=== PATIENT | female | born 1995 | race Caucasian/White ===

== ENCOUNTER 2017-02-16 15:30 | Emergency (ER) | payer SELFPAY ==
[2017-02-16 16:09] VITALS: BP 117/74
--- NOTE | 2017-02-16 17:15 | RAD ---
INDICATION: Cough and fever. COMPARISON: There are no prior studies available for comparison. TECHNIQUE: Dual-energy PA and lateral views of the chest were obtained. FINDINGS: The heart is within normal limits in size. Mediastinal and hilar contours appear within normal limits. The lungs are clear. No pleural effusion is present. IMPRESSION: NO EVIDENCE FOR ACTIVE CARDIOPULMONARY DISEASE.
--- NOTE | 2017-02-16 17:56 | UC ---
General HPI - HPI Summary HPI Summary: THREE DAYS OF FEVER AND CHILLS, RESOLVING AND RETURNING. MILD COUGH. MILD SORE THROAT TWO DAYS AGO. NO ABDOMINAL PAIN. NO TICK BITE. NO RASHES. NO NECK STIFFNESS. NO JOINT PAIN. NO DYSURIA. NO RECENT TRAVEL. NO NAUSEA NO VOMITING NO DIARRHEA. NO CONSTIPATION. - History of Current Complaint Chief Complaint: UCGeneralIllness Stated Complaint: FEVER Time Seen by Provider: 02/16/17 15:43 Hx Obtained From: Patient, Family/Denture Model Maker Hx Last Menstrual Period: one week ago Onset/Duration: Gradual Onset, Lasting Days, Still Present Onset Severity: Mild Current Severity: Mild Pain Intensity: 0 Associated Signs & Symptoms: Positive: Cough - MILD, Fever. Negative: Chest Pain, Dizziness, Diarrhea, Dysuria, Edema, Headache, Syncope, SOB, Trauma, Vomiting, Wheezing, Weakness - Allergy/Home Medications Allergies/Adverse Reactions: Allergies Allergy/AdvReac Type Severity Reaction Status Date / Time Sulfa Drugs Allergy Severe Airway Verified 02/16/17 15:36 Obstruction IVORY SOAP Allergy Rash Uncoded 02/16/17 15:36 Home Medications: Home Medications NK [No Home Medications Reported] 02/16/17 [History Confirmed 02/16/17] PMH/Surg Hx/FS Hx/Imm Hx Previously Healthy: Yes Other History Of: Negative For: Anticoagulant Therapy - Surgical History Surgical History: None - Family History Known Family History: Positive: None Negative: Blood Disorder - Social History Occupation: Employed Full-time Lives: With Family Alcohol Use: Occasionally Substance Use Type: None Smoking Status (MU): Light Every Day Tobacco Smoker Have You Smoked in the Last Year: No Cessation Counseling: Patient Advised to Stop - Immunization History Most Recent Influenza Vaccination: none Most Recent Tetanus Shot: 12/22/14 Most Recent Pneumonia Vaccination: none Review of Systems Constitutional: Fever, Chills Skin: Negative Eyes: Negative ENT: Negative Respiratory: Negative Cardiovascular: Negative Gastrointestinal: Negative Genitourinary: Negative Motor: Negative Neurovascular: Negative Musculoskeletal: Negative Neurological: Negative Psychological: Negative All Other Systems Reviewed And Are Negative: Yes Physical Exam Triage Information Reviewed: Yes Appearance: Well-Appearing, No Pain Distress, Ill-Appearing - MILDLY, Thin Vital Signs: Initial Vital Signs Temp 98.3 F 02/16/17 15:32 Pulse 92 02/16/17 15:32 Resp 12 02/16/17 15:32 BP 117/74 02/16/17 15:32 Pulse Ox 99 02/16/17 15:32 Vital Signs Reviewed: Yes Eye Exam: Normal ENT Exam: Normal ENT: Positive: Normal ENT inspection, Hearing grossly normal, Pharynx normal, TMs normal Dental Exam: Normal Neck exam: Normal Neck: Positive: Supple, Nontender Respiratory Exam: Normal Respiratory: Positive: Chest non-tender, Lungs clear, Normal breath sounds, No respiratory distress, No accessory muscle use Cardiovascular Exam: Normal Cardiovascular: Positive: RRR, No Murmur, Pulses Normal Abdominal Exam: Normal Abdomen Description: Positive: Nontender, No Organomegaly, Soft Musculoskeletal Exam: Normal Neurological Exam: Normal Psychological Exam: Normal Skin Exam: Normal Course/Dx - Differential Dx - Multi-Symptom Differential Diagnoses: Metabolic Abnormality, Sepsis, Urinary Tract Infection Provider Diagnoses: VIRAL SYNDROME Discharge - Discharge Plan Condition: Stable Disposition: HOME Patient Education Materials: Viral Syndrome (ED) Forms: *Work Release Referrals: [facility] PHYSICIAN REFERRAL [Outside] No Primary Care Phys,NOPCP [Primary Care Provider] - Additional Instructions: PRIMARY CARE: There are four major types of clinical preventive care: immunizations, screening , behavioral counseling (sometimes referred to as lifestyle changes), and chemoprevention. All four apply throughout the life span. It is important to establish and to have access to a Primary Care Physician, not only for follow- up regrding acute and chronic problems, but also for preventative care.
--- NOTE | 2017-02-18 07:55 | UC ---
Progress - Progress Note Progress Note: URINE CX WITH STAPH HOMINIS. KEFLEX SENT TO [facility] IN [place]. - JOSÉ MIGUEL MONTAÑO MD
--- NOTE | 2017-02-19 08:53 | UC ---
Complaint Female HPI - HPI Summary HPI Summary: THREE DAYS OF FEVER AND CHILLS, RESOLVING AND RETURNING. MILD COUGH. MILD SORE THROAT TWO DAYS AGO. NO ABDOMINAL PAIN. NO TICK BITE. NO RASHES. NO NECK STIFFNESS. NO JOINT PAIN. NO DYSURIA. NO RECENT TRAVEL. NO NAUSEA NO VOMITING NO DIARRHEA. NO CONSTIPATION. PLEASE CALL PATIENT. CHANGE ANTIBIOTIC TO MACROBID SECONDARY TO CULTURE RESULTS. IF WORSE GO TO ER. - History Of Current Complaint Chief Complaint: UCGeneralIllness Stated Complaint: FEVER Time Seen by Provider: 02/16/17 15:43 Hx Obtained From: Patient, Family/Counter Intelligence Agent Hx Last Menstrual Period: one week ago Onset/Duration: Gradual Onset, Lasting Days, Still Present Pain Intensity: 0 Pain Scale Used: 0-10 Numeric - Allergies/Home Medications Allergies/Adverse Reactions: Allergies Allergy/AdvReac Type Severity Reaction Status Date / Time Sulfa Drugs Allergy Severe Airway Verified 02/16/17 15:36 Obstruction IVORY SOAP Allergy Rash Uncoded 02/16/17 15:36 PMH/Surg Hx/FS Hx/Imm Hx Previously Healthy: Yes Other History Of: Negative For: Anticoagulant Therapy - Surgical History Surgical History: None - Family History Known Family History: Positive: None Negative: Blood Disorder - Social History Occupation: Employed Full-time Lives: With Family Alcohol Use: Occasionally Substance Use Type: None Smoking Status (MU): Light Every Day Tobacco Smoker Have You Smoked in the Last Year: No Cessation Counseling: Patient Advised to Stop - Immunization History Most Recent Influenza Vaccination: none Most Recent Tetanus Shot: 12/22/14 Most Recent Pneumonia Vaccination: none Review of Systems Constitutional: Fever, Chills Skin: Negative Eyes: Negative ENT: Negative Respiratory: Negative Cardiovascular: Negative Gastrointestinal: Negative Genitourinary: Negative Motor: Negative Neurovascular: Negative Musculoskeletal: Negative Neurological: Negative Psychological: Negative All Other Systems Reviewed And Are Negative: Yes Physical Exam Triage Information Reviewed: Yes Appearance: Well-Appearing, No Pain Distress, Ill-Appearing - MILDLY, Thin Vital Signs: Initial Vital Signs Temp 36.8 C 02/16/17 15:32 Pulse 92 02/16/17 15:32 Resp 12 02/16/17 15:32 BP 117/74 02/16/17 15:32 Pulse Ox 99 02/16/17 15:32 Vital Signs Reviewed: Yes Eye Exam: Normal ENT Exam: Normal ENT: Positive: Normal ENT inspection, Hearing grossly normal, Pharynx normal, TMs normal Dental Exam: Normal Neck exam: Normal Neck: Positive: Supple, Nontender Respiratory Exam: Normal Respiratory: Positive: Chest non-tender, Lungs clear, Normal breath sounds, No respiratory distress, No accessory muscle use Cardiovascular Exam: Normal Cardiovascular: Positive: RRR, No Murmur, Pulses Normal Abdominal Exam: Normal Abdomen Description: Positive: Nontender, No Organomegaly, Soft Musculoskeletal Exam: Normal Neurological Exam: Normal Psychological Exam: Normal Skin Exam: Normal Complaint Female Dx - Differential Dx/Diagnosis Provider Diagnoses: UTI Discharge - Discharge Plan Condition: Stable Disposition: HOME Prescriptions: Cephalexin CAP* [Keflex 500 CAP*] 1,000 mg PO BID #20 cap Nitrofurantoin Monohyd Macro [Macrobid] 100 mg PO BID #14 cap Patient Education Materials: Viral Syndrome (ED) Forms: *Work Release Referrals: [facility] [place] [facility] REFERRAL [Outside] No Primary Care Phys,NOPCP [Primary Care Provider] - Additional Instructions: PRIMARY CARE: There are four major types of clinical preventive care: immunizations, screening , behavioral counseling (sometimes referred to as lifestyle changes), and chemoprevention. All four apply throughout the life span. It is important to establish and to have access to a Primary Care Physician, not only for follow- up regrding acute and chronic problems, but also for preventative care.
== END 2017-02-16 17:28 | disposition home or self-care (01) ==
LOC: UCEAST 15:30
DX: B34.9 Viral infection, unspecified (principal); N39.0 Urinary tract infection, site not specified; B95.7 Other staphylococcus as the cause of diseases classified elsewhere; R05 Cough; R50.9 Fever, unspecified; Z88.2 Allergy status to sulfonamides; F17.210 Nicotine dependence, cigarettes, uncomplicated; Z32.02 Encounter for pregnancy test, result negative
CPT/HCPCS: 71020; 81003; 84702; 87077; 87086; 87186; 87651; 99211; G0463

== ENCOUNTER 2017-06-29 11:52 | Emergency (ER) | payer SELFPAY ==
--- NOTE | 2017-06-29 12:55 | UC ---
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 - History of Current Complaint Chief Complaint: UCBackPain Stated Complaint: LOWER BACK PAIN Hx Obtained From: Patient Hx Last Menstrual Period: 06/22/17 Onset/Duration: Gradual Onset, Lasting Weeks - 2 Timing: Constant Severity Initially: Mild Severity Currently: Moderate Pain Intensity: 7 Pain Scale Used: 0-10 Numeric Back Pain: Is Diffuse, Radiates To - RIGHT LEG Character: Dull, Aching, Throbbing Aggravating Factor(s): Lifting, Bending Alleviating Factor(s): Nothing Associated Signs And Symptoms: Negative: Swelling, Redness, Bruising, Fever, Weakness, Numbness, Tingling, Abdominal Pain, Flank Pain, Bladder Incontinence, Bowel Incontinence, Weight Loss, Pain with Weight Bearing - Allergies/Home Medications Allergies/Adverse Reactions: Allergies Allergy/AdvReac Type Severity Reaction Status Date / Time Sulfa Drugs Allergy Severe Airway Verified 06/29/17 12:51 Obstruction IVORY SOAP Allergy Rash Uncoded 06/29/17 12:51 Home Medications: Home Medications Diphenhydramine-Acetaminophen [Tylenol Pm Extra Strength 500-25 mg] 06/29/17 [ History] Ibuprofen [Advil] 200 mg PO 06/29/17 [History] PMH/Surg Hx/FS Hx/Imm Hx Previously Healthy: Yes Other History Of: Negative For: Anticoagulant Therapy - Surgical History Surgical History: None - Family History Known Family History: Positive: Hypertension Negative: Blood Disorder - Social History Alcohol Use: Rare Substance Use Type: None Smoking Status (MU): Heavy Every Day Tobacco Smoker Type: Cigarettes Have You Smoked in the Last Year: No - Immunization History Most Recent Influenza Vaccination: none Most Recent Tetanus Shot: 12/22/14 Most Recent Pneumonia Vaccination: none Review of Systems Constitutional: Negative Skin: Negative Eyes: Negative ENT: Negative Respiratory: Negative Cardiovascular: Negative Gastrointestinal: Negative Genitourinary: Negative Motor: Negative Neurovascular: Negative Musculoskeletal: Arthralgia, Decreased ROM - BACK, Myalgia Neurological: Negative Psychological: Negative Is Patient Immunocompromised?: No All Other Systems Reviewed And Are Negative: Yes Physical Exam Triage Information Reviewed: Yes Appearance: Well-Appearing, No Pain Distress, Well-Nourished Vital Signs: Initial Vital Signs Temp 98.4 F 06/29/17 12:46 Pulse 106 06/29/17 12:46 Resp 18 06/29/17 12:46 BP 113/66 06/29/17 12:46 Pulse Ox 100 06/29/17 12:46 Vital Signs Reviewed: Yes Eyes: Positive: Conjunctiva Clear ENT: Negative: Hearing grossly normal, Nasal congestion, Nasal drainage, Trismus , Muffled voice, Hoarse voice, Dental tenderness, Sinus tenderness Neck: Positive: Supple, Nontender Respiratory: Positive: Lungs clear, Normal breath sounds, No respiratory distress Cardiovascular: Positive: RRR, No Murmur Abdomen Description: Positive: Nontender. Negative: CVA Tenderness (R), CVA Tenderness (L) Musculoskeletal: Positive: ROM Intact, No Edema Neurological: Positive: Alert, Other: - KNEE AND ANKLE JERKS BRISK AND SYMMETRIC /SENSATION INTACT NORMAL GAIT AND STRENGTH NEGATIVE STRAIGHT LEG RAISE Psychological Exam: Normal Skin Exam: Normal Diagnostics - Laboratory Diagnostic Studies Completed/Ordered: URINE DIP +++ LEUKS - Radiology No standard instances Xray Interpretation: No Acute Changes - RIGHT-SIDED PSEUDOARTICULATION. POSSIBLE RIGHT-SIDED NEPHROLITHIASIS Radiology Interpretation Completed By: Radiologist Back Pain Course/Dx - Differential Dx/Diagnosis Provider Diagnoses: RIGHT SCIATICA (SUSPECT NON DISCOGENIC). UTI. POSSIBLE RIGHT NEPHROLITHIASIS Discharge - Discharge Plan Condition: Stable Disposition: HOME Prescriptions: Cephalexin CAP* [Keflex CAP*] 500 mg PO BID #14 cap Cyclobenzaprine TAB* [Flexeril TAB*] 10 mg PO TID PRN #21 tab PRN Reason: Spasms Ibuprofen TAB* [Motrin TAB*] 600 mg PO Q6H PRN #40 tab PRN Reason: Pain Patient Education Materials: Kidney Stones (ED), Urinary Tract Infection in Women (ED), Sciatica (ED) Forms: *Work Release Referrals: [facility] [place] [facility] REFERR[facility] [Outside] - As Soon As Possible (TO FIND A PRIMARY CARE DOCTOR) Anders Lamar MD [Medical Doctor] - If Needed (CALL IF STONE BECOMES PROBLEMATIC) Additional Instructions: YOUR URINE LOOKS SUSPICIOUS FOR A UTI A CULTURE IS PENDING YOU MAY HAVE A STONE IN YOUR RIGHT KIDNEY IF IT CAUSES PROBLEMS SEE THE UROLOGIST (DR LAMAR) YOU NEED TO FIND A PRIMARY CARE DOCTOR FOLLOW UP IF BACK NOT BETTER IN 1-2 WEEKS WORSENING SYMPTOMS GO TO THE ER INCREASED PAIN/FEVER/VOMITING Images Front/Back of Body, Lg ([place]): 1 - PAIN HERE 2 - RADIATES HERE
[2017-06-29] MEDS ORDERED: Ibuprofen TAB* 600 MG PO ONE (13:17)
--- NOTE | 2017-06-29 14:07 | RAD ---
INDICATION: Low back pain/leg pain COMPARISON: Lumbar spine June 13, 2010 TECHNIQUE: Routine PA, lateral, and oblique imaging was performed . FINDINGS: Bones: There are no acute bony findings. There are no significant osteoarthritic findings. There is a right-sided pseudoarticulation of the transverse process of L5 with the sacrum. Alignment: Normal Disc spaces: The disc spaces are well-maintained Soft tissues: There is a 4 mm calcification projecting over the right kidney. This could be urinary in origin. IMPRESSION: RIGHT-SIDED PSEUDOARTICULATION. POSSIBLE RIGHT-SIDED NEPHROLITHIASIS.
[2017-06-29 14:47] VITALS: BP 117/79
--- NOTE | 2017-06-30 15:34 | UC ---
- Progress Note Progress Note: notify patient no UTI may stop kelfex
== END 2017-06-29 14:45 | disposition home or self-care (01) ==
LOC: UCEAST 11:52
DX: M54.31 Sciatica, right side (principal); N39.0 Urinary tract infection, site not specified; Z88.2 Allergy status to sulfonamides; Z91.09 Other allergy status, other than to drugs and biological substances; Z79.899 Other long term (current) drug therapy
CPT/HCPCS: 72110; 81003; 81025; 87086; 99212; A9270-GY; G0463

== ENCOUNTER 2017-09-01 16:25 | Emergency (ER) | payer SELFPAY ==
[2017-09-01] MEDS ORDERED: Aspirin Low Dose CHEW TAB* 81 MG PO ONE (16:44)
[2017-09-01] MEDS ORDERED: NS 0.9% 1000 ML* 1,000 ML IV ONE (16:44)
[2017-09-01 17:00] LABS: ABS Basophils 0 10^3/ul (0-0.2); ABS Eosinophils 0 10^3/ul (0-0.6); ABS Lymphocytes 1.6 10^3/ul (1.0-4.8); ABS Monocytes 0.6 10^3/ul (0-0.8); ABS Neutrophils 5.5 10^3/ul (1.5-7.7); ABS Nucleated RBC 0 10^3/ul; Eosinophil % 0.4 % (0-6); Hematocrit 43 % (35-47); Hemoglobin 14.7 g/dl (12.0-16.0); Lymphocyte % 20.9 % (25-47); Mean Corpuscular HGB Conc 35 g/dl (31-36); Mean Corpuscular Hemoglobin 32 pg (27-31); Mean Corpuscular Volume 92 fL (80-97); Mean Platelet Volume 8 um3 (7.4-10.4); Nucleated Red Blood Cells % 0; Platelet Count 267 10^3/ul (150-450); Red Blood Count 4.66 10^6/ul (4.0-5.4); Red Cell Distribution Width 14 % (10.5-15); White Blood Count 7.8 10^3/ul (3.5-10.8)
--- NOTE | 2017-09-01 17:02 | RAD ---
HISTORY: Chest pain COMPARISONS: February 16, 2017 VIEWS: 1: frontal portable view of the chest at 4:50 PM FINDINGS: LINES AND TUBES: None. CARDIOMEDIASTINAL SILHOUETTE: The cardiomediastinal silhouette is normal for portable technique. PLEURA: The costophrenic angles are sharp. No pleural abnormalities are noted. LUNG PARENCHYMA: The lungs are clear. ABDOMEN: The upper abdomen is clear. There is no subphrenic gas. BONES AND SOFT TISSUES: No bone or soft tissue abnormalities are noted. IMPRESSION: NO ACTIVE CARDIOPULMONARY DISEASE.
[2017-09-01 17:09] LABS: INR 1.05 (0.77-1.02)
[2017-09-01 19:33] VITALS: BP 122/91
--- NOTE | 2017-09-01 21:41 | ED ---
Andres Person Sixian, scribed for Trev Beckwith MD on 09/01/17 at 1648 . HPI Chest Pain - HPI Summary HPI Summary: This patient is a 22 year old F presenting to ED with a chief complaint of intermittent left-sided chest pain since a few ago. The CC is described as sharp pain towards front and radiates to the back and shoulders, resulting in feeling pressure. The patient rates the pain 10/10 in severity at its worst. Symptoms aggravated movement and alleviated by nothing. Patient reports SOB, elevated HR secondary to chest pain. Patient denies nausea, feeling lightheaded , and calf pain. - History of Current Complaint Chief Complaint: EDChestPainROMI Time Seen by Provider: 09/01/17 16:35 Hx Obtained From: Patient Hx Last Menstrual Period: 06/22/17 Onset/Duration: Started Weeks Ago, Still Present Timing: Intermittent, Lasting Minutes Current Severity: Moderate Pain Intensity: 3 Pain Scale Used: 0-10 Numeric Chest Pain Location: Left Lateral Chest Pain Radiates To:: Back, Shoulder Character: Pressure/Squeezing, Sharp/Stabbing Aggravating Factor(s): Movement Alleviating Factor(s): Nothing Associated Signs and Symptoms: Positive: Other: - Patient reports SOB, elevated heartbeat secondary to chest pain. Patient denies nausea, feeling lightheaded, and calf pain. - Allergy/Home Medications Allergies/Adverse Reactions: Allergies Allergy/AdvReac Type Severity Reaction Status Date / Time MS Sulfa Drugs [Sulfa Drugs] Allergy Severe Airway Verified 06/29/17 12:51 Obstruction IVORY SOAP Allergy Rash Uncoded 06/29/17 12:51 Home Medications: Home Medications NK [No Home Medications Reported] 09/01/17 [History Confirmed 09/01/17] PMH/Surg Hx/FS Hx/Imm Hx Endocrine/Hematology History: Denies: Hx Anticoagulant Therapy, Hx Blood Disorders Cardiovascular History: Denies: Other Cardiovascular Problems/Disorders Respiratory History: Denies: Other Respiratory Problems/Disorders Musculoskeletal History: Denies: Hx Scoliosis Sensory History: Reports: Hx Contacts or Glasses Opthamlomology History: Reports: Hx Contacts or Glasses Neurological History: Denies: Hx Headaches, Other Neuro Impairments/Disorders Infectious Disease History: No Infectious Disease History: Denies: Hx of Known/Suspected MRSA, Traveled Outside the [place] in Last 30 Days - Family History Known Family History: Positive: None, Hypertension Negative: Blood Disorder - Social History Alcohol Use: Rare Substance Use Type: Reports: None Smoking Status (MU): Heavy Every Day Tobacco Smoker Type: Cigarettes Have You Smoked in the Last Year: No Review of Systems Positive: Chest Pain, Other - elevated heart rate Positive: Shortness Of Breath Negative: Nausea Musculoskeletal: Negative - calf pain Neurological: Negative - lightheadedness All Other Systems Reviewed And Are Negative: Yes Physical Exam - Summary Physical Exam Summary: General: well-appearing, no pain distress Skin: warm, color reflects adequate perfusion, dry Head: normal Eyes: EOMI, JAMAAL ENT: normal Neck: supple, nontender Respiratory: CTA, breath sounds present Cardiovascular: RRR Abdomen: soft, nontender Bowel: present Musculoskeletal: normal, strength/ROM intact Neurological: normal, sensory/motor intact, A&O x3 Psychological: affect/mood appropriate Triage Information Reviewed: Yes Vital Signs On Initial Exam: Initial Vitals Temp Pulse Resp BP Pulse Ox 98.2 F 100 15 122/81 99 09/01/17 16:29 09/01/17 16:29 09/01/17 16:29 09/01/17 16:29 09/01/17 16:29 Vital Signs Reviewed: Yes Diagnostics - Vital Signs Vital Signs Temp Pulse Resp BP Pulse Ox 09/01/17 16:29 98.2 F 100 15 122/81 99 - Laboratory Lab Results: Lab Results 09/01/17 09/01/17 09/01/17 Range/Units 16:45 16:45 16:45 WBC (3.5-10.8) 10^3/ul RBC (4.0-5.4) 10^6/ul Hgb (12.0-16.0) g/dl Hct (35-47) % MCV (80-97) fL MCH (27-31) pg MCHC (31-36) g/dl RDW (10.5-15) % Plt Count (150-450) 10^3/ul MPV (7.4-10.4) um3 Neut % (Auto) (38-83) % Lymph % (Auto) (25-47) % [place] % (Auto) (0-7) % Eos % (Auto) (0-6) % Baso % (Auto) (0-2) % Absolute Neuts (auto) (1.5-7.7) 10^3/ul Absolute Lymphs (auto) (1.0-4.8) 10^3/ul Absolute Monos (auto) (0-0.8) 10^3/ul Absolute Eos (auto) (0-0.6) 10^3/ul Absolute Basos (auto) (0-0.2) 10^3/ul Absolute Nucleated RBC 10^3/ul Nucleated RBC % INR (Anticoag Therapy) 1.05 H (0.77-1.02) APTT 27.5 (26.0-36.3) seconds D-Dimer, Quantitative < 200 (Less Than 230) ng/mL Sodium 140 (133-145) mmol/L Potassium 3.5 (3.5-5.0) mmol/L Chloride 106 (101-111) mmol/L Carbon Dioxide 27 (22-32) mmol/L Anion Gap 7 (2-11) mmol/L BUN 11 (6-24) mg/dL Creatinine 0.66 (0.51-0.95) mg/dL Est GFR ( Amer) 142.7 (>60) Est GFR (Non-Af Amer) 111.0 (>60) BUN/Creatinine Ratio 16.7 (8-20) Glucose 106 H (70-100) mg/dL Lactic Acid (0.5-2.0) mmol/L Calcium 9.9 (8.6-10.3) mg/dL Magnesium 2.0 (1.9-2.7) mg/dL Total Bilirubin 0.50 (0.2-1.0) mg/dL AST 16 (13-39) U/L ALT 12 (7-52) U/L Alkaline Phosphatase 61 (34-104) U/L Total Creatine Kinase 59 (10-223) U/L CK-MB (CK-2) 0.8 (0.6-6.3) ng/mL Troponin I 0.00 (<0.04) ng/mL C-Reactive Protein < 1.00 (< 5.00) mg/L B-Natriuretic Peptide 16 ( - 100) pg/mL Total Protein 7.2 (6.4-8.9) g/dL Albumin 4.6 (3.2-5.2) g/dL Globulin 2.6 (2-4) g/dL Albumin/Globulin Ratio 1.8 (1-3) Lipase < 10 L (11.0-82.0) U/L TSH 1.15 (0.34-5.60) mcIU/mL Beta HCG, Quant < 0.60 mIU/mL 09/01/17 09/01/17 09/01/17 Range/Units 16:45 16:45 19:28 WBC 7.8 (3.5-10.8) 10^3/ul RBC 4.66 (4.0-5.4) 10^6/ul Hgb 14.7 (12.0-16.0) g/dl Hct 43 (35-47) % MCV 92 (80-97) fL MCH 32 H (27-31) pg MCHC 35 (31-36) g/dl RDW 14 (10.5-15) % Plt Count 267 (150-450) 10^3/ul MPV 8 (7.4-10.4) um3 Neut % (Auto) 70.2 (38-83) % Lymph % (Auto) 20.9 L (25-47) % [place] % (Auto) 8.1 H (0-7) % Eos % (Auto) 0.4 (0-6) % Baso % (Auto) 0.4 (0-2) % Absolute Neuts (auto) 5.5 (1.5-7.7) 10^3/ul Absolute Lymphs (auto) 1.6 (1.0-4.8) 10^3/ul Absolute Monos (auto) 0.6 (0-0.8) 10^3/ul Absolute Eos (auto) 0 (0-0.6) 10^3/ul Absolute Basos (auto) 0 (0-0.2) 10^3/ul Absolute Nucleated RBC 0 10^3/ul Nucleated RBC % 0 INR (Anticoag Therapy) (0.77-1.02) APTT (26.0-36.3) seconds D-Dimer, Quantitative (Less Than 230) ng/mL Sodium (133-145) mmol/L Potassium (3.5-5.0) mmol/L Chloride (101-111) mmol/L Carbon Dioxide (22-32) mmol/L Anion Gap (2-11) mmol/L BUN (6-24) mg/dL Creatinine (0.51-0.95) mg/dL Est GFR ( Amer) (>60) Est GFR (Non-Af Amer) (>60) BUN/Creatinine Ratio (8-20) Glucose (70-100) mg/dL Lactic Acid 1.4 (0.5-2.0) mmol/L Calcium (8.6-10.3) mg/dL Magnesium (1.9-2.7) mg/dL Total Bilirubin (0.2-1.0) mg/dL AST (13-39) U/L ALT (7-52) U/L Alkaline Phosphatase (34-104) U/L Total Creatine Kinase (10-223) U/L CK-MB (CK-2) (0.6-6.3) ng/mL Troponin I 0.00 (<0.04) ng/mL C-Reactive Protein (< 5.00) mg/L B-Natriuretic Peptide ( - 100) pg/mL Total Protein (6.4-8.9) g/dL Albumin (3.2-5.2) g/dL Globulin (2-4) g/dL Albumin/Globulin Ratio (1-3) Lipase (11.0-82.0) U/L TSH (0.34-5.60) mcIU/mL Beta HCG, Quant mIU/mL Result Diagrams: 09/01/17 16:45 09/01/17 16:45 Lab Statement: Any lab studies that have been ordered have been reviewed, and results considered in the medical decision making process. - Radiology CXR Radiology Interpretation Completed By: Radiologist - NO ACTIVE CARDIOPULMONARY DISEASE. ED physician has reviewed this radiology report. - EKG 1643 Cardiac Rate: NL EKG Rhythm: Sinus Rhythm - 90 BPM EKG Interpretation: Normal ST. No ectopy. Chest Pain Course/Dx - Course Course Of Treatment: BP noted and advised to follow up with PCP. Medications reviewed. Allergies noted. DISCUSSED RESULTS WITH PATIENT. NO CHEST PAIN IN ED. F/U WITH PMD; RETURN IF WORSE. - Diagnoses Provider Diagnoses: Elevated BP without diagnosis of hypertension, Chest pain Discharge - Discharge Plan Condition: Stable Disposition: HOME Patient Education Materials: Chest Pain (ED) Referrals: [facility] [place] [facility]FERR[facility] [Outside] Additional Instructions: FOLLOW UP WITH YOUR DOCTOR. DISCUSS HAVING A HALTER MONITOR WITH YOUR DOCTOR. RETURN TO THE EMERGENCY DEPARTMENT FOR ANY WORSENING OF YOUR CONDITION OR QUESTIONS OR CONCERNS. YOUR BLOOD PRESSURE WAS ELEVATED TODAY; FOLLOW UP WITH YOUR PRIMARY CARE DOCTOR WITHIN THE NEXT 1 WEEK. The documentation as recorded by the Andres hinton Sixian accurately reflects the service I personally performed and the decisions made by me, Trev Beckwith MD.
== END 2017-09-01 19:48 | disposition home or self-care (01) ==
LOC: ED 16:25
DX: R07.9 Chest pain, unspecified (principal); R03.0 Elevated blood-pressure reading, without diagnosis of hypertension; F17.210 Nicotine dependence, cigarettes, uncomplicated; Z88.2 Allergy status to sulfonamides
CPT/HCPCS: 36415; 71045; 80053; 82550; 82553; 83605; 83690; 83735; 83880; 84443; 84484; 84702; 85025; 85379; 85610; 85730; 86140; 93005; 96360; 99283; A9270-GY

== ENCOUNTER 2017-09-02 12:51 | Emergency (ER) | payer SELFPAY ==
[2017-09-02 13:38] LABS: ABS Basophils 0 10^3/ul (0-0.2); ABS Eosinophils 0.1 10^3/ul (0-0.6); ABS Lymphocytes 1.5 10^3/ul (1.0-4.8); ABS Monocytes 0.3 10^3/ul (0-0.8); ABS Neutrophils 2.7 10^3/ul (1.5-7.7); ABS Nucleated RBC 0 10^3/ul; Eosinophil % 1.7 % (0-6); Hematocrit 41 % (35-47); Lymphocyte % 32.1 % (25-47); Mean Corpuscular HGB Conc 34 g/dl (31-36); Mean Corpuscular Hemoglobin 31 pg (27-31); Mean Corpuscular Volume 92 fL (80-97); Mean Platelet Volume 9 um3 (7.4-10.4); Nucleated Red Blood Cells % 0; Platelet Count 232 10^3/ul (150-450); Red Blood Count 4.45 10^6/ul (4.0-5.4); Red Cell Distribution Width 13 % (10.5-15); White Blood Count 4.6 10^3/ul (3.5-10.8)
[2017-09-02 13:58] LABS: EGFR Non-African American 126.3 (>60)
[2017-09-02] MEDS ORDERED: Ondansetron INJ* 2 MG/ML VIAL IV ONE (14:02)
[2017-09-02] MEDS ORDERED: Ketorolac INJ* 30 MG/ML 1 ML VIAL IV PUSH ONE (14:02)
[2017-09-02] MEDS ORDERED: NS 0.9% 1000 ML* 1,000 ML BOLUS SCH (14:15)
[2017-09-02 16:49] LABS: Urine Appearance Cloudy; Urine Blood 1+ (Negative); Urine Color Yellow; Urine Ketones Negative (Negative); Urine Protein Negative (Negative); Urine Specific Gravity 1.018 (1.010-1.030); Urine Urobilinogen Positive (Negative)
[2017-09-02 17:30] VITALS: BP 114/76
--- NOTE | 2017-09-02 20:51 | ED ---
Bora Person Natalie, scribed for Madelin Quintanilla MD on 09/02/17 at 1416 . Syncope/Near Syncope - HPI Summary HPI Summary: The patient is a 22 y/o F presenting to ED for sharp CP in left anterior chest. She was in the ED yesterday for CP. She was taking Ibuprofen for the pain which she vomited up. She woke up with sharp CP. Also, she was talking to her shantelle father when she started getting CP again and suddenly blacked out. She awoke to her shantelle father trying to wake her up, but she couldnt remember what happened. She had another syncopal episode about two hours later. The pain is tighter and more-restricting than yesterday. She is not in pain currently. She has had syncopal episodes in the past about four years ago. Her interline clerk , Dr. 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 She becomes nauseous and lightheaded when moving too fast, and she denies abd pain. She is allergic to sulfas. She has FHx of heart disease on fathers side, HTN on mothers side, and diabetes on both sides. - History Of Current Complaint Chief Complaint: EDSyncope Time Seen by Provider: 09/02/17 13:05 Hx Obtained From: Patient Onset/Duration: Sudden Onset, Lasting Hours - starting this morning, Still Present Timing: Intermittent Episode Lasting Context: Witnessed Activity At Onset: Other - sitting down, talking to child's father Associated Head Trauma: No Aggravating Factor(s): Other - moving quickly Alleviating Factor(s): Nothing Associated Signs And Symptoms: Chest Pain - tightness, Lightheadedness, Vomiting - Allergies/Home Medications Allergies/Adverse Reactions: Allergies Allergy/AdvReac Type Severity Reaction Status Date / Time Sulfa (Sulfonamide Allergy Severe Airway Verified 09/02/17 14:05 Antibiotics) Obstruction IVORY SOAP Allergy Rash Uncoded 06/29/17 12:51 PMH/Surg Hx/FS Hx/Imm Hx Previously Healthy: No Endocrine/Hematology History: Denies: Hx Anticoagulant Therapy, Hx Blood Disorders Cardiovascular History: Denies: Other Cardiovascular Problems/Disorders Respiratory History: Denies: Other Respiratory Problems/Disorders Musculoskeletal History: Denies: Hx Scoliosis Sensory History: Reports: Hx Contacts or Glasses Opthamlomology History: Reports: Hx Contacts or Glasses Neurological History: Denies: Hx Headaches, Other Neuro Impairments/Disorders Infectious Disease History: No Infectious Disease History: Denies: Hx of Known/Suspected MRSA, Traveled Outside the [place] in Last 30 Days - Family History Known Family History: Positive: Hypertension - on mother's side, Diabetes - maternal and paternal sides, Other - heart disease on father's side Negative: Blood Disorder - Social History Alcohol Use: Rare Substance Use Type: Reports: None Smoking Status (MU): Heavy Every Day Tobacco Smoker Type: Cigarettes Have You Smoked in the Last Year: No Review of Systems Positive: Chest Pain Positive: Vomiting, Nausea. Negative: Abdominal Pain Neurological: Other - lightheadedness Positive: Syncope All Other Systems Reviewed And Are Negative: Yes Physical Exam - Summary Physical Exam Summary: Appearance: Well-appearing, moderate pain distress, Well-nourished. Patient is orthostatic based on pulse increasing 30 pts upon standing Skin: Warm, color reflects adequate perfusion Head: Normal Head/Face inspection Eyes: Conjunctiva clear ENT: Normal inspection Neck: Supple, no nodes, no JVD. Respiratory: Lungs clear, Normal breath sounds, no respiratory distress Cardio: RRR, No murmur, pulses normal, brisk capillary refill Abdomen: soft, nontender Bowel sounds: present Musculoskeletal: Strength Intact/ ROM intact. No calf tenderness. No edema. Neuro: Alert, muscle tone normal, facial symmetry, speech normal, sensory/motor intact Psychological: Normal Triage Information Reviewed: Yes Vital Signs On Initial Exam: Initial Vitals Temp Pulse Resp BP Pulse Ox 98.5 F 90 14 134/91 100 09/02/17 12:54 09/02/17 12:54 09/02/17 12:54 09/02/17 12:54 09/02/17 12:54 Vital Signs Reviewed: Yes Diagnostics - Vital Signs Vital Signs Temp Pulse Resp BP Pulse Ox 09/02/17 12:54 98.5 F 90 14 134/91 100 - Laboratory Lab Results: Lab Results 09/02/17 09/02/17 Range/Units 13:25 13:25 WBC 4.6 (3.5-10.8) 10^3/ul RBC 4.45 (4.0-5.4) 10^6/ul Hgb 14.0 (12.0-16.0) g/dl Hct 41 (35-47) % MCV 92 (80-97) fL MCH 31 (27-31) pg MCHC 34 (31-36) g/dl RDW 13 (10.5-15) % Plt Count 232 (150-450) 10^3/ul MPV 9 (7.4-10.4) um3 Neut % (Auto) 58.5 (38-83) % Lymph % (Auto) 32.1 (25-47) % Howard % (Auto) 7.4 H (0-7) % Eos % (Auto) 1.7 (0-6) % Baso % (Auto) 0.3 (0-2) % Absolute Neuts (auto) 2.7 (1.5-7.7) 10^3/ul Absolute Lymphs (auto) 1.5 (1.0-4.8) 10^3/ul Absolute Monos (auto) 0.3 (0-0.8) 10^3/ul Absolute Eos (auto) 0.1 (0-0.6) 10^3/ul Absolute Basos (auto) 0 (0-0.2) 10^3/ul Absolute Nucleated RBC 0 10^3/ul Nucleated RBC % 0 INR (Anticoag Therapy) 1.00 (0.77-1.02) APTT 28.3 (26.0-36.3) seconds D-Dimer, Quantitative < 200 (Less Than 230) ng/mL Result Diagrams: 09/02/17 13:25 09/02/17 13:25 Lab Statement: Any lab studies that have been ordered have been reviewed, and results considered in the medical decision making process. - EKG 13:06 Cardiac Rate: NL EKG Rhythm: Sinus Rhythm - [address] Segment: Non-Specific Ectopy: None EKG Interpretation: Nml AVIVCT. Nml QTc. Nml axis. EKG Comparison: No Significant Change - from 09/01/17 Re-Evaluation - Re-Evaluation First Eval Re-Evaluation Time: 16:33 Change: Improved Comment: The patient is agreeable to be discharged home. Course/Dx Course Of Treatment: Pt's medications reviewed during this visit. Allergies noted. In the ER, the patient was given NS IV, Toradol 30mg IV, and Zofran 4mg IV. The patient is orthostatic for pulse, which increased by 30pts from 67 to 97. BP stayed the same. We will hydrate the patient. The patient will be discharged home with instructions to follow up with a primary care physician in two days. She is agreeable with this plan. - Diagnoses Provider Diagnoses: Chest pain, Orthostatic hypertension, Normal hydration status Discharge - Discharge Plan Condition: Stable Disposition: HOME Patient Education Materials: Chest Pain (ED), Dehydration (ED), Syncope (ED) Referrals: [facility] [Outside] - 2 Days Additional Instructions: You were given normal saline intravenously for hydration. You were also given Zofran 4mg and Toradol 30mg. There was nothing significantly abnormal in your labs. Follow up with referred primary care physician in two days. Return to the ER if any new or worsening symptoms occur. The documentation as recorded by the Bora hinton Natalie accurately reflects the service I personally performed and the decisions made by , Madelin Quintanilla MD.
== END 2017-09-02 17:26 | disposition home or self-care (01) ==
LOC: ED 12:51
DX: R07.9 Chest pain, unspecified (principal); R11.2 Nausea with vomiting, unspecified; I10 Essential (primary) hypertension; R42 Dizziness and giddiness; F17.210 Nicotine dependence, cigarettes, uncomplicated; R55 Syncope and collapse
CPT/HCPCS: 36415; 80053; 80320; 81003; 81015; 82550; 83605; 83735; 84443; 84484; 84702; 85025; 85379; 85610; 85730; 93005; 96374; 96375; 99283; G0480; J1885; J2405

== ENCOUNTER 2017-10-20 15:23 | Emergency (ER) | payer SELFPAY ==
[2017-10-20] MEDS ORDERED: NS 0.9% 1000 ML* 1,000 ML IV ONE (17:58)
[2017-10-20 18:02] VITALS: BP 0/0
== END 2017-10-20 18:02 | disposition left against medical advice (07) ==
LOC: ED 15:23
DX: M54.5 Low back pain (principal); Z53.21 Procedure and treatment not carried out due to patient leaving prior to being seen by health care provider
CPT/HCPCS: 99282

== ENCOUNTER 2017-10-30 20:06 | Emergency (ER) | payer SELFPAY ==
[2017-10-30] MEDS ORDERED: Ketorolac INJ* 30 MG/ML 1 ML VIAL IV PUSH ONE (22:28)
[2017-10-30] MEDS ORDERED: NS 0.9% 1000 ML* 1,000 ML IV ONE (22:28)
[2017-10-30] MEDS ORDERED: Metoclopramide IV* 5 MG/ML 2 ML VIAL IV SLOW PU ONE (22:28)
[2017-10-30] MEDS ORDERED: Morphine VIAL* 4 MG/ML VIAL (1 ml vial) IV ONE (22:28)
[2017-10-30 22:41] LABS: ABS Basophils 0 10^3/ul (0-0.2); ABS Eosinophils 0 10^3/ul (0-0.6); ABS Monocytes 0.6 10^3/ul (0-0.8); ABS Neutrophils 8.9 10^3/ul (1.5-7.7); ABS Nucleated RBC 0 10^3/ul; Eosinophil % 0.2 % (0-6); Hematocrit 39 % (35-47); Hemoglobin 13.3 g/dl (12.0-16.0); Lymphocyte % 9.2 % (25-47); Mean Corpuscular HGB Conc 35 g/dl (31-36); Mean Corpuscular Hemoglobin 31 pg (27-31); Mean Corpuscular Volume 91 fL (80-97); Mean Platelet Volume 8.5 um3 (7.4-10.4); Nucleated Red Blood Cells % 0; Platelet Count 243 10^3/ul (150-450); Red Blood Count 4.25 10^6/ul (4.0-5.4); Red Cell Distribution Width 13 % (10.5-15); White Blood Count 10.5 10^3/ul (3.5-10.8)
[2017-10-30 22:57] LABS: INR 1.07 (0.77-1.02)
[2017-10-30 23:00] LABS: EGFR Non-African American 95.8 (>60)
[2017-10-30 23:15] LABS: Urine Appearance Turbid; Urine Blood 3+ (Negative); Urine Ketones 1+ (Negative); Urine Protein 2+(100 mg/dL) (Negative); Urine Specific Gravity 1.023 (1.010-1.030); Urine Urobilinogen Negative (Negative)
[2017-10-30 23:24] LABS: Urine Color Red
[2017-10-30] MEDS ORDERED: Levofloxacin 500 MG IVPREMIX(* 500 MG/100 ML BAG IVPB ONE (23:51)
[2017-10-31] MEDS ORDERED: Tamsulosin CAP* 0.4 MG PO ONE
--- NOTE | 2017-10-31 00:40 | ED ---
Mariajose Person Thomas, scribed for Deo Reece MD on 10/30/17 at 2236 . Back Pain - HPI Summary HPI Summary: The patient is a 22 year old female complaining of lower back pain on the right side that has been intermittent for the last two weeks. The pain worsened today. The pain radiates downward. She complains of hematuria and vomiting for the last day. Past medical history includes kidney stones. - History of Current Complaint Chief Complaint: EDBackInjuryPain Stated Complaint: BACK PAIN,VOMITING Time Seen by Provider: 10/30/17 22:14 Hx Obtained From: Patient Hx Last Menstrual Period: 06/22/17 Onset/Duration: Lasting Weeks - 2, Still Present, Worse Since - today Onset/Duration: Still Present Timing: Intermittent Back Pain Location: Is Discrete @ - lower back pain on the right side, Radiates To - downward Severity Currently: Severe Pain Intensity: 10 Pain Scale Used: 0-10 Numeric Aggravating Symptom(s): Nothing Alleviating Symptom(s): Nothing Associated Signs And Symptoms: Positive: Other - Hematuria, vomiting - Allergies/Home Medications Allergies/Adverse Reactions: Allergies Allergy/AdvReac Type Severity Reaction Status Date / Time Sulfa (Sulfonamide Allergy Severe Airway Verified 09/02/17 14:05 Antibiotics) Obstruction IVORY SOAP Allergy Rash Uncoded 06/29/17 12:51 PMH/Surg Hx/FS Hx/Imm Hx Endocrine/Hematology History: Denies: Hx Anticoagulant Therapy, Hx Blood Disorders Cardiovascular History: Denies: Other Cardiovascular Problems/Disorders Respiratory History: Denies: Other Respiratory Problems/Disorders History: Reports: Hx Kidney Stones Musculoskeletal History: Denies: Hx Scoliosis Sensory History: Reports: Hx Contacts or Glasses Opthamlomology History: Reports: Hx Contacts or Glasses Neurological History: Denies: Hx Headaches, Other Neuro Impairments/Disorders - Surgical History Surgery Procedure, Year, and Place: none - Immunization History Immunizations Up to Date: No Infectious Disease History: No Infectious Disease History: Denies: Hx of Known/Suspected MRSA, Traveled Outside the [place] in Last 30 Days - Family History Known Family History: Positive: Hypertension - on mother's side, Diabetes - maternal and paternal sides, Other - heart disease on father's side Negative: Blood Disorder - Social History Alcohol Use: Rare Substance Use Type: Reports: None Smoking Status (MU): Heavy Every Day Tobacco Smoker Type: Cigarettes Have You Smoked in the Last Year: No Review of Systems Negative: Fever Positive: Vomiting Positive: hematuria, other - Low back pain on the right side All Other Systems Reviewed And Are Negative: Yes Physical Exam - Summary Physical Exam Summary: VITAL SIGNS: Reviewed. GENERAL:~Patient is a well-developed and nourished female who is lying comfortable in the stretcher. Patient is not in any acute respiratory distress. HEAD AND FACE: No signs of trauma. No ecchymosis, hematomas or skull depressions. No sinus tenderness. EYES: PERRLA, EOMI x 2, No injected conjunctiva, no nystagmus. EARS: Hearing grossly intact. Ear canals and tympanic membranes are within normal limits. MOUTH: Oropharynx within normal limits. NECK: Supple, trachea is midline, no adenopathy, no JVD, no carotid bruit, no c- spine tenderness, neck with full ROM. CHEST: Symmetric, no tenderness at palpation LUNGS: Clear to auscultation bilaterally. No wheezing or crackles. CVS: Regular rate and rhythm, S1 and S2 present, no murmurs or gallops appreciated. ABDOMEN: Soft. She has RLQ tenderness. No signs of distention. No rebound no guarding, and no masses palpated. Bowel sounds are normal. BACK: She has right CVA tenderness. EXTREMITIES: FROM in all major joints, no edema, no cyanosis or clubbing. NEURO: Alert and oriented x 3. No acute neurological deficits. Speech is normal and follows commands. SKIN: Dry and warm Triage Information Reviewed: Yes Vital Signs On Initial Exam: Initial Vitals Temp Pulse Resp BP Pulse Ox 98.1 F 88 18 124/83 99 10/30/17 20:11 10/30/17 20:11 10/30/17 20:11 10/30/17 20:11 10/30/17 20:11 Vital Signs Reviewed: Yes Diagnostics - Vital Signs Vital Signs Temp Pulse Resp BP Pulse Ox 10/30/17 20:11 98.1 F 88 18 124/83 99 - Laboratory Result Diagrams: 10/30/17 22:34 10/30/17 22:34 Lab Statement: Any lab studies that have been ordered have been reviewed, and results considered in the medical decision making process. - CT CT Abdomen/Pelvis CT Interpretation: Positive (See Comments) - Impression: Mild right hydronephrosis secondary to a 6 x 4 mm right ureteral stone. Additional tiny bilateral stones. Dr. Reece has reviewed this report. CT Interpretation Completed By: Radiologist Re-Evaluation - Re-Evaluation First Eval Re-Evaluation Time: 00:38 Comment: The patient is sleeping. Back Pain Course/Dx - Course Assessment/Plan: The patient is a 22 year old female with a history of kidney stones complaining of lower back pain on the right side that has been intermittent for the last two weeks. She complains of hematuria and vomiting for the last day. In the ED course, the patient was given Toradol, Reglan, morphine, and IV fluids. Bloodwork and urinalysis were obtained. CT Abdomen/ Pelvis shows mild right hydronephrosis secondary to a 6 x 4 mm right ureteral stone. Additional tiny bilateral stones. The patient is afebrile and has been afebrile. At re-evaluation, the patient is sleeping. The patient is diagnosed with right ureteral stone and UTI. The patient will be discharged home to follow up with urology. - Diagnoses Provider Diagnoses: Right ureteral stone, UTI (urinary tract infection) Discharge - Sign-Out/Discharge Documenting (check all that apply): Discharge/Admit/Transfer - Discharge Plan Condition: Stable Disposition: HOME Prescriptions: Ibuprofen TAB* [Motrin TAB* 600 MG] 600 mg PO Q6H PRN #30 tab PRN Reason: Pain Levofloxacin TAB* [Levaquin TAB*] 500 mg PO DAILY #7 tab Metoclopramide TAB* [Reglan TAB*] 10 mg PO Q6H PRN #20 tab PRN Reason: Nausea/Vomiting oxyCODONE/Acetamin 5/325 MG* [Percocet 5/325 TAB*] 1 tab PO Q6H PRN #14 tab MDD 4 PRN Reason: Pain (Dental) Tamsulosin CAP* [Flomax CAP*] 0.4 mg PO BEDTIME #7 cap Patient Education Materials: Ureteral Stones (ED) Referrals: Anders Miles MD [Medical Doctor] - 3 Days Kenneth Alvarado MD [Medical Doctor] - 3 Days Additional Instructions: Follow up with urology within three days. I have given you referrals to see either Dr. Alvarado or Dr. Miles. Return to the emergency department for any new or worsening symptoms. The documentation as recorded by the scribeMariajose Thomas accurately reflects the service I personally performed and the decisions made by me, Deo Reece MD.
[2017-10-31 00:57] VITALS: BP 123/75
--- NOTE | 2017-10-31 07:14 | RAD ---
INDICATION: Abdominal pain. COMPARISON: There are no prior studies available for comparison. TECHNIQUE: A CT scan of the abdomen and pelvis was performed without intravenous or oral contrast. Contiguous axial sections were obtained from the lung bases through the symphysis pubis. Images were reconstructed in the coronal and sagittal planes. FINDINGS: The lung bases are clear. No pleural effusion is present. The liver and spleen are within normal limits in size without significant focal abnormality on this noncontrast study. No calcified gallstones are seen. The pancreas appears to be within normal limits in size. The adrenal glands and left kidney are normal in size. The right kidney is enlarged. There are small 3 mm calculi present in the lower pole of both kidneys. There is dilatation of the renal calyces, ureter to the level of a relatively large 7 x 4 mm calculus in the distal ureter just proximal to the ureterovesical junction. This is causing moderate hydronephrosis. The aorta is normal in caliber without significant calcific plaque. No significant enlarged retroperitoneal lymph nodes are seen. The stomach, small and large bowel appear nondistended. The appendix is within normal limits. There is no evidence for diverticulitis or colitis. The uterus is retroverted and normal in size. There is a small amount of free intraperitoneal fluid present in the dependent portion of the pelvis. No free intraperitoneal air is seen. No significant focal osseous abnormality is seen. IMPRESSION: 1. THERE IS A 7 MM CALCULUS IN THE DISTAL RIGHT URETER CAUSING MODERATE HYDRONEPHROSIS. 2. THERE ARE SMALL ADDITIONAL BILATERAL RENAL CALCULI.
== END 2017-10-31 01:12 | disposition home or self-care (01) ==
LOC: ED 20:06
DX: N13.2 Hydronephrosis with renal and ureteral calculous obstruction (principal); N39.0 Urinary tract infection, site not specified; F17.210 Nicotine dependence, cigarettes, uncomplicated; R10.9 Unspecified abdominal pain
CPT/HCPCS: 36415; 74176; 80053; 81003; 81015; 83735; 84702; 85025; 85610; 85730; 86140; 87086; 96365; 96375; 99283; J1885; J1956; J2270; J2765

== ENCOUNTER 2018-10-27 10:26 | Emergency (ER) | payer SELFPAY ==
[2018-10-27] MEDS ORDERED: Fluorescein Sodium TOPICAL* 1 MG TEST STRIP OPHTHALMIC ONE (11:08)
--- NOTE | 2018-10-27 11:17 | ED ---
Throat Pain/Nasal Congestion - HPI Summary HPI Summary: Patient is a 23 y/o F presenting to ED with complaints of vision changes, pain, redness, photophobia, and swelling at right eye. She states that she experienced right eye redness onsetting four days ago on 10/23/18 in the morning. Photophobia is endorsed as well. This morning, upon awakening, she states that her right eye was "sealed shut" but notes no discharge, stating that her right eye was only swollen shut. She applied cold compression to afflicted eye and was able to open eye. Afterwards, she states that she was unable to see "colors and shapes" from right eye. This Sx is reported to be still present. Patient applied eye drops this morning with no relief in Sx. Patient notes palpation, objects such as hair brushing against right eye aggravate pain, pain is described as "stabbing". No pruritus of eye is noted. Patient has pictures of her right eye from this morning, eye is noted to be more swollen and redder during this morning. In room, she rates pain at 6-7/10. In 2013, patient had an episode of her right eye "swollen shut". She received Dx of pink eye, was referred to Dr. Jeffery. Dr. Jeffery found that the patient had puncture holes from contact lenses at right eye. Holes are reported to be constant, patient is unsure why this is the case. Patient has not worn contacts since 2013. She has been prescribed eye drops, she does not recall the name of the medications. She notes that "max strength redness eye drops" help alleviate Sx. Patient notes that she has not seen Dr. Jeffery in a significant amount of time due to her health insurance issues. Patient was reassured that every patient is received by [facility] regardless of insurance status and that [facility] offers resources to help come up with possible payment plans. Patient believes that she has not had any retinal problems but she is unsure. No congenial issues , no trauma to eye is reported. PMHx of HTN, thyroid issues are denied. No PSHx is reported. LNMP was last month and was normal, notes period is due sometime at the end of the month, A0. No other medications taken except for eye drops. Home medications and allergies are reviewed. Home Medications NK [No Home Medications Reported] 10/27/18 [History Confirmed 10/27/18] Allergies Allergy/AdvReac Type Severity Reaction Status Date / Time Sulfa (Sulfonamide Allergy Severe Airway Verified 10/27/18 10:36 Antibiotics) Obstruction IVORY SOAP Allergy Rash Uncoded 10/27/18 10:36 - History of Current Complaint Chief Complaint: EDEyeProblem Time Seen by Provider: 10/27/18 11:06 Hx Obtained From: Patient Onset/Duration: Lasting Days - right eye redness, photophobia onset 10/23/18, swelling, vision changes this morning 10/27/18 upon awakening, Still Present Severity: Moderate - 6-7/10 Associated Signs And Symptoms: Positive: Negative Cough: None - Allergies/Home Medications Allergies/Adverse Reactions: Allergies Allergy/AdvReac Type Severity Reaction Status Date / Time Sulfa (Sulfonamide Allergy Severe Airway Verified 10/27/18 10:36 Antibiotics) Obstruction IVORY SOAP Allergy Rash Uncoded 10/27/18 10:36 PMH/Surg Hx/FS Hx/Imm Hx Endocrine/Hematology History: Denies: Hx Anticoagulant Therapy, Hx Blood Disorders Cardiovascular History: Denies: Other Cardiovascular Problems/Disorders Respiratory History: Denies: Other Respiratory Problems/Disorders History: Reports: Hx Kidney Stones Musculoskeletal History: Denies: Hx Scoliosis Sensory History: Reports: Hx Contacts or Glasses Opthamlomology History: Reports: Hx Contacts or Glasses Neurological History: Denies: Hx Headaches, Other Neuro Impairments/Disorders - Surgical History Surgery Procedure, Year, and Place: none Infectious Disease History: No Infectious Disease History: Denies: Hx of Known/Suspected MRSA, Traveled Outside the [place] in Last 30 Days - Family History Known Family History: Positive: Hypertension - on mother's side, Diabetes - maternal and paternal sides, Other - heart disease on father's side Negative: Blood Disorder - Social History Alcohol Use: Rare Substance Use Type: Reports: None Smoking Status (MU): Heavy Every Day Tobacco Smoker Type: Cigarettes Have You Smoked in the Last Year: No Review of Systems Negative: Fever Eyes: Other - right eye swelling, pain, no pruritus Positive: Photophobia, Blurred Vision - cannot see shapes or colors , Erythema. Negative: Drainage - denied All Other Systems Reviewed And Are Negative: Yes Physical Exam - Summary Physical Exam Summary: Appearance: Ill-appearing, moderate pain distress, well-nourished Skin: Warm, color reflects adequate perfusion, dry Head: Normal Head/Face inspection, atraumatic Eyes: PERRL, right conjunctiva is inflamed at upper and lower area, some pus at top eyelid is noted, finger count is blurred, positive light eye perception, right pupil retracts under eyelid with light, eye acuity test showed 20/40 left , 20/200 right, patient cannot perceive shapes from right eye and has no peripheral vision from right eye. ENT: Normal inspection Neck: Supple, no nodes, no JVD Respiratory: Lungs clear, normal breath sounds, no respiratory distress Cardio: RRR, No murmur, pulses normal, brisk capillary refill Abdomen: Soft, nontender Bowel sounds: Present Musculoskeletal: Strength Intact/ROM intact, no calf tenderness, no edema. Psychological: Normal Neuro: Alert, muscle tone normal, no focal deficit Triage Information Reviewed: Yes Vital Signs On Initial Exam: Initial Vitals Temp Pulse Resp BP Pulse Ox 98.4 F 72 16 127/90 100 10/27/18 10:36 10/27/18 10:36 10/27/18 10:36 10/27/18 10:36 10/27/18 10:36 Vital Signs Reviewed: Yes Procedures - Procedure Summary Procedure Summary: Patient received two drops tetracaine and flu-rhys, under blue light no punctate lesions, no corneal abrasion noted. Right conjuctiva inflamed still, patient will be prescribed antibiotic - Eye Procedure Right Eye FB Removal: other - no foreign body Diagnostics - Vital Signs Vital Signs Temp Pulse Resp BP Pulse Ox 10/27/18 10:36 98.4 F 72 16 127/90 100 - Laboratory Lab Statement: Any lab studies that have been ordered have been reviewed, and results considered in the medical decision making process. Re-Evaluation - Re-Evaluation First Eval Re-Evaluation Time: 12:34 Comment: Patient received two drops tetracaine and flu-rhys, under blue light no punctate lesions, no corneal abrasion noted. Right conjuctiva inflamed still, patient will be prescribed antibiotic and follow up with Dr. Jeffery. Patient is agreeable with this plan. EENT Course/Dx - Course Course Of Treatment: Patient is a 23 y/o F presenting to ED with complaints of vision changes, pain, redness, photophobia, and swelling at right eye. She states that she experienced right eye redness onsetting four days ago on in the morning. Photophobia is endorsed as well. This morning, upon awakening , she states that her right eye was "sealed shut" but notes no discharge, stating that her right eye was only swollen shut. She applied cold compression to afflicted eye and was able to open eye. Afterwards, she states that she was unable to see "colors and shapes" from right eye. This Sx is reported to be still present. Patient applied eye drops this morning with no relief in Sx. Patient notes palpation, objects such as hair brushing against right eye aggravate pain, pain is described as "stabbing". No pruritus of eye is noted. Patient has pictures of her right eye from this morning, eye is noted to be more swollen and redder during this morning. In room, she rates pain at 6-7/10. In 2013, patient had an episode of her right eye "swollen shut". She received Dx of pink eye, was referred to Dr. Jeffery. Dr. Jeffery found that the patient had puncture holes from contact lenses at right eye. Holes are reported to be constant, patient is unsure why this is the case. Patient has not worn contacts since 2013. She has been prescribed eye drops, she does not recall the name of the medications. She notes that "max strength redness eye drops" help alleviate Sx. Patient notes that she has not seen Dr. Jeffery in a significant amount of time due to her health insurance issues. Patient believes that she has not had any retinal problems but she is unsure. No congenial issues, no trauma to eye is reported. On physical exam, patient is PERRL, right conjunctiva is inflammed at upper and lower area, some pus at top eyelid is noted, finger count is blurred, positive light eye perception, right pupil retracts under eyelid with light, eye acuity test showed 20/40 left, 20/200 right, patient cannot perceive shapes from right eye and has no peripheral vision from right eye. During ED course, patient received tetracaine 0.5 opth.dylan 4 M; 2 drops right eye ED ONCE ONE and Ful-Rhys 1 mg OPHTHALMIC ED ONCE ONE. Under blue light no punctate lesions, no corneal abrasion noted. Right conjuctiva inflamed still, patient will be prescribed antibiotic and follow up with Dr. Jeffery. Patient is agreeable with this plan. - Diagnoses Provider Diagnoses: Redness of right eye, Decreased vision of right eye Discharge - Sign-Out/Discharge Documenting (check all that apply): Patient Departure - discharge Patient Received Moderate/Deep Sedation with Procedure: No - Discharge Plan Condition: Stable Disposition: HOME Prescriptions: Tobramycin 0.3% OPHTH.DYLAN* 2 drop RIGHT EYE Q4H #1 btl Patient Education Materials: Tobramycin (Into the eye) Referrals: [facility] [Outside] - 1 Day Eduard Jeffery MD [Medical Doctor] - 1 Day Additional Instructions: Dr. Carlin did not see a corneal abrasion or any punctate lesions to suggest "holes in your cornea", but with a painful red eye, you should still be seen by the spa director/finance [facility]. Dr. Carlin has prescribed tobramycin eye drops for you. Do not continue the anti-redness drops while using these drops. Return to the ER if you have any new or worsening symptoms. - Attestation Statements Document Initiated by Scribe: Yes Documenting Scribe: NANCY BENÍTEZ Provider For Whom Scribe is Documenting (Include Credential): MELINA CARLIN MD Scribe Attestation: NANCY Person, scribed for MELINA CARLIN MD on 10/27/18 at 1930.
[2018-10-27] MEDS ORDERED: Tetracaine 0.5% OPTH.SOL 4 ML* 1 DROP BTL RIGHT EYE ONE (11:26)
[2018-10-27 13:39] VITALS: BP 00/0
== END 2018-10-27 13:38 | disposition home or self-care (01) ==
LOC: ED 10:26
DX: H53.8 Other visual disturbances (principal); F17.210 Nicotine dependence, cigarettes, uncomplicated; Z88.2 Allergy status to sulfonamides
CPT/HCPCS: 99282; A9270-GY

== ENCOUNTER 2019-10-16 19:10 | Emergency (ER) | payer OTHER ==
--- NOTE | 2019-10-16 20:04 | ED ---
- HPI Summary HPI Summary: This is a 24 y/o, , currently approximately 3month female (based on LMP), who presents today with abdominal cramping and vaginal bleeding. She was doing well until 30min prior to arrival, at which time she developed a sudden pelvic cramp and a gush of blood. The bleeding and pain have both since improved. She denies other symptoms, including N/V/diarrhea, fever, chills, URI sx, urinary sx, anosmia or dysgustia. - History of Current Complaint Chief Complaint: EDOBProblems Stated Complaint: 3 MONTHS PREG/BLEEDING PER PT Time Seen by Provider: 10/16/19 19:31 Hx Obtained From: Patient Chief Complaint: Pain, Vaginal Bleeding Onset/Duration: Started Minutes Ago Severity: Mild Current Severity: Mild Pain Intensity: 0 Location of Pain: Right Side Character: Cramping Aggravating Factors: Nothing Alleviating Factors: Nothing Associated Signs and Symptoms: Positive: Vaginal Bleeding or Discharge. Negative: Back Pain, Fever, Genital Swelling or Blisters, Nausea, Urinary Symptoms, Vomiting - Assessment Hx Now: No SAB: 0 IEA: 0 History of Ectopic : No Vaginal Bleeding Amount: Small - Risk Factors Ovarian Torsion Risk Factor: Reproductive Age - Additional Pertinent History Maternal Blood Type and Rh: A Negative - Allergies/Home Medications Allergies/Adverse Reactions: Allergies Allergy/AdvReac Type Severity Reaction Status Date / Time Sulfa (Sulfonamide Allergy Severe Airway Verified 10/16/19 19:29 Antibiotics) Obstruction IVORY SOAP Allergy Rash Uncoded 10/16/19 19:29 Home Medications: Home Medications NK [No Home Medications Reported] 10/16/19 [History Confirmed 10/16/19] PMH/Surg Hx/FS Hx/Imm Hx Previously Healthy: Yes Endocrine/Hematology History: Denies: Hx Anticoagulant Therapy, Hx Blood Disorders Cardiovascular History: Denies: Other Cardiovascular Problems/Disorders Respiratory History: Denies: Other Respiratory Problems/Disorders History: Reports: Hx Kidney Stones Musculoskeletal History: Denies: Hx Scoliosis Sensory History: Reports: Hx Contacts or Glasses Opthamlomology History: Reports: Hx Contacts or Glasses Neurological History: Denies: Hx Headaches, Other Neuro Impairments/Disorders - Surgical History Surgical History: None Surgery Procedure, Year, and Place: none Infectious Disease History: No Infectious Disease History: Denies: Hx of Known/Suspected MRSA, Traveled Outside the [place] in Last 30 Days - Family History Known Family History: Positive: Cardiac Disease - paternal, Hypertension - on mother's side, Diabetes - maternal and paternal sides, Other - heart disease on father's side Negative: Blood Disorder - Social History Occupation: Employed Full-time Lives: With Family Alcohol Use: Rare Hx Substance Use: No Substance Use Type: Reports: None Hx Tobacco Use: Yes Smoking Status (MU): Heavy Every Day Tobacco Smoker Type: Cigarettes Have You Smoked in the Last Year: No Review of Systems Negative: Fever, Chills, Fatigue, Skin Diaphoresis Eyes: Negative Negative: Epistaxis Cardiovascular: Negative Respiratory: Negative Positive: Abdominal Pain, Nausea. Negative: Vomiting, Diarrhea Positive: see HPI, other. Negative: burning, dysuria, discharge, hematuria, incontinence, pain, urgency Musculoskeletal: Negative Skin: Negative Neurological/Mental Status: Negative Psychological: Normal All Other Systems Reviewed And Are Negative: Yes Physical Exam - Physical Exam Triage Information Reviewed: Yes Vital Signs Reviewed: Yes Appearance: Positive: Well-Appearing, No Pain Distress, Well-Nourished Skin: Positive: Warm, Dry. Negative: Jaundiced, Mottled @ Head/Face: Positive: Normal Head/Face Inspection Eyes: Positive: Normal, EOMI, Conjunctiva Clear ENT: Positive: Normal ENT inspection, Hearing grossly normal Neck: Positive: Supple, Nontender, No Lymphadenopathy Respiratory/Lung Sounds: Positive: Clear to Auscultation, Breath Sounds Present. Negative: Decreased Breath Sounds, Rales, Rhonchi, Subcutaneous Emphysema, Stridor, Wheezes Cardiovascular: Positive: Normal, RRR, S1, S2. Negative: Murmur, Rub, Tachycardia, Leg Edema Left, Leg Edema Right Abdomen Description: Positive: Soft, Other:. Negative: Distended, Guarding, Pulsatile Mass Bowel Sounds: Positive: Present Musculoskeletal: Positive: Normal. Negative: Edema Left, Edema Right Neurological: Positive: Normal, Sensory/Motor Intact, Alert, Oriented to Person Place, Time Psychiatric: Positive: Normal, Affect/Mood Appropriate Procedures - Sedation Patient Received Moderate/Deep Sedation with Procedure: No Diagnostics - Vital Signs Vital Signs Temp Pulse Resp BP Pulse Ox 10/16/19 19:20 97.5 F 82 16 136/85 100 - Laboratory Result Diagrams: 10/16/19 20:18 10/16/19 20:18 Lab Statement: Any lab studies that have been ordered have been reviewed, and results considered in the medical decision making process. - Ultrasound US Ultrasound Interpretation Completed By: Radiologist Summary of Ultrasound Findings: US IMPRESSION: Single live intrauterine fetus with an estimated age of 11 weeks 0 days. The EDC is 05/06/2020. Reviewed by Dr. Sanchez. Re-Evaluation - Re-Evaluation First Eval Re-Evaluation Time: 22:07 Change: Unchanged Comment: At 22:07, patient reports the father during her first 2 pregnancies was Rh positive, and the father of her current is Rh negative. Course/Dx - Course Course Of Treatment: This is a 24 y/o, , currently approximately 3month female (based on LMP), who presents today with abdominal cramping and vaginal bleeding. She was doing well until 30min prior to arrival, at which time she developed a sudden pelvic cramp and a gush of blood. The bleeding and pain have both since improved. She denies other symptoms, including N/V/ diarrhea, fever, chills, URI sx, urinary sx, anosmia or dysgustia. On exam, unremarkable findings. In the ED course, patient was given Rho Immune Globulin 1500 i.u. IM. US IMPRESSION: Single live intrauterine fetus with an estimated age of 11 weeks 0 days. The EDC is 05/06/2020[place] [address]. UA shows urine blood 3+, urine leukocyte esterase trace, urine squamous epith cells , and urine ascorbic acid present. At 22:07, patient reports the father during her first 2 pregnancies was Rh positive, and the father of her current is Rh negative. At 22:15, Dr. Fito Causey recommends the patient be given Rhogam. Patient will be discharged with a diagnosis of threatened miscarriage. Follow up with OBGYN. - Diagnoses Provider Diagnoses: Threatened miscarriage - Provider Notifications Discussed Care Of Patient With: Fito Causey - At 22:15, Dr. Fito Causey recommends the patient be given Rhogam. Time Discussed With Above Provider: 22:15 - Critical Care Time Critical Care Statement: Critical care time is provided exclusive of any time spent performing procedures. Discharge ED - Sign-Out/Discharge Documenting (check all that apply): Patient Departure - Discharge - Discharge Plan Condition: Stable Disposition: HOME Patient Education Materials: Threatened Miscarriage (ED) Print Language: MALTESE Referrals: [facility] [Outside] Additional Instructions: The radiologist felt the ultrasound appeared normal. The baby is 11w, 4d. Your due date is 05/06/2020. The placenta appears normal. Make sure to call your OB/ OPERATIONS AND MAINTENANCE TECHNICAN tomorrow to schedule follow-up. - Billing Disposition and Condition Condition: STABLE Disposition: Home - Attestation Statements Document Initiated by Scribe: Yes Documenting Scribe: Ifrah Rodas Provider For Whom Devon is Documenting (Include Credential): Maribel Rico MD Scribe Attestation: I, Ifrah Rodas, scribed for Maribel Sanchez MD on 10/16/19 at 2337. Scribe Documentation Reviewed: Yes Provider Attestation: The documentation as recorded by the Ifrah hinton accurately reflects the service I personally performed and the decisions made by me, Maribel Sanchez MD Status of Scribe Document: Viewed
[2019-10-16 20:28] LABS: ABS Basophils 0.1 10^3/ul (0-0.2); ABS Eosinophils 0.1 10^3/ul (0-0.6); ABS Lymphocytes 2.2 10^3/ul (1.0-4.8); ABS Monocytes 0.8 10^3/ul (0-0.8); ABS Neutrophils 6.2 10^3/ul (1.5-7.7); Eosinophil % 1.4 %; Hematocrit 38 % (35-47); Hemoglobin 13.4 g/dL (12.0-16.0); Lymphocyte % 23.2 %; Mean Corpuscular HGB Conc 35 g/dL (31-36); Mean Corpuscular Hemoglobin 32 pg (27-31); Mean Corpuscular Volume 90 fL (80-97); Mean Platelet Volume 8.9 fL (7.4-10.4); Platelet Count 237 10^3/uL (150-450); Red Cell Distribution Width 14 % (10-15); White Blood Count 9.4 10^3/uL (3.5-10.8)
[2019-10-16 20:49] LABS: Albumin 4.1 g/dL (3.2-5.2); Albumin/Globulin Ratio 1.6 (1-3); BUN/Creatinine Ratio 13.3 (8-20); Calcium 9.2 mg/dL (8.6-10.3); EGFR African American 205.4 (>60); EGFR Non-African American 169.8 (>60); Globulin 2.6 g/dL (2-4); Potassium 3.9 mmol/L (3.5-5.0); Total Bilirubin 0.3 mg/dL (0.2-1.0); Total Protein 6.7 g/dL (6.4-8.9)
[2019-10-16 22:03] LABS: Urine Appearance Cloudy; Urine Bilirubin Negative (Negative); Urine Blood 3+ (Negative); Urine Color Yellow; Urine Glucose Negative (Negative); Urine Ketones Negative (Negative); Urine Nitrite Negative (Negative); Urine Protein Negative (Negative); Urine Urobilinogen Negative (Negative)
[2019-10-16] MEDS ORDERED: RHO D Immune Globulin (HUMAN) 1,500 I.U. SYRINGE IM ONE (22:16)
[2019-10-16 22:38] LABS: Urine Bacteria Absent (Absent); Urine Red Blood Cell Trace(0-2/hpf) (Absent); Urine Squamous Epithelial Cell Present (Absent); Urine White Blood Cell Trace(0-5/hpf) (Absent)
[2019-10-16 22:47] VITALS: BP 109/65
== END 2019-10-16 22:40 | disposition home or self-care (01) ==
LOC: ED 19:10
DX: O20.0 Threatened abortion (principal); Z3A.12 12 weeks gestation of pregnancy; R10.9 Unspecified abdominal pain; R11.0 Nausea; F17.210 Nicotine dependence, cigarettes, uncomplicated; Z88.2 Allergy status to sulfonamides
CPT/HCPCS: 36415; 76801; 80053; 81003; 81015; 84702; 85025; 86850; 86900; 86901; 87086; 99282